=== PATIENT | female | born 1990 | race Caucasian/White ===

== ENCOUNTER 2020-01-05 19:50 | Emergency (ER) | payer OTHER, SELFPAY ==
[2020-01-05 19:51] VITALS: BP 114/72; PULSE 80; RESP 16; TEMP 37; O2SAT 98
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
--- NOTE | 2020-01-05 20:40 | NUR.NOTE ---
Nursing Note: No obvious injuries noted upon head to toe assessment.
[2020-01-05 20:42] VITALS: BP 124/64; PULSE 74; RESP 16; TEMP 36.6; O2SAT 98
== END 2020-01-05 20:45 | disposition home or self-care (01) ==
PROVIDERS: Emergency Provider Emergency Medicine
DX: S16.1XXA Strain of muscle, fascia and tendon at neck level, initial encounter (principal); S50.811A Abrasion of right forearm, initial encounter; S50.812A Abrasion of left forearm, initial encounter; V43.52XA Car driver injured in collision with other type car in traffic accident, initial encounter
CPT/HCPCS: 99283